=== PATIENT | female | born 1975 | race Caucasian/White ===

== ENCOUNTER 2021-10-01 13:08 | Emergency (ER) | payer OTHER, SELFPAY ==
--- NOTE | ~2021-10-01 | XR_ITS ---
EXAMINATION: XR HIP, LEFT CLINICAL INFORMATION: Status post fall. Left hip pain. COMPARISON: None TECHNIQUE: Two views of the left hip. FINDINGS: Bones and soft tissues are normal. No fracture. Alignment is anatomic. Hip joint space is maintained. XR/XR hip LT min 2V IMPRESSION: No evidence of acute fracture or dislocation in the left hip.
[2021-10-01 13:11] VITALS: BP 150/78; PULSE 95; RESP 22; TEMP 36.3; O2SAT 99; BMI 30.5
--- NOTE | 2021-10-01 16:08 | ED_ITS ---
HPI - Fall General Chief Complaint: Fall Stated Complaint: FALL L FOOT INJ Time Seen by Provider: 10/01/21 15:51 History of Present Illness HPI Narrative: patient complains of left gluteal pain after slipping on the stairs falling back and hitting her left gluteal area on the edge of the step, she has no other injury she had no numbness weakness or tingling and no changes to bowel or bladder Related Data Previous Rx's Medication Instructions Recorded acetaminophen 500 mg tablet 1,000 mg PO QID PRN #30 tab 10/01/21 ibuprofen 600 mg tablet 600 mg PO Q6H PRN #20 tab 10/01/21 oxycodone 5 mg tablet 5 mg PO Q6H PRN #14 tab 10/01/21 Allergies Allergy/AdvReac Type Severity Reaction Status Date / Time No Known Allergies Allergy Verified 10/01/21 13:13 Review of Systems Review of Systems: Positive for left gluteal pain after a fall Negatives are no headache no loss of consciousness no neck pain no numbness weakness or tingling no changes to bowel or bladder no joint pains or extremity pain Yes all other systems are reviewed and are negative [facility] Past Medical History Source: nursing notes reviewed Social History Social History Advance Directives: No Advance Directives Information Provided: No Patient : No Physical Exam Vital Signs: Vital Signs: Last Vital Signs Temp 97.3 F 10/01/21 13:11 Pulse 95 10/01/21 13:11 Resp 22 H 10/01/21 13:11 BP 150/78 H 10/01/21 13:11 Pulse Ox 99 10/01/21 13:11 BMI result Body Mass Index 30.5 General appearance is no acute distress Head normocephalic atraumatic Neck is supple nontender Respiratory no distress Abdomen soft nontender The back there is no bony tenderness in the back there is ecchymoses and a large palpable hematoma in the left gluteal area, but skin is intact The patient did have full range of motion in the hip and legs with normal motor strength distal 5/5 x4 in all extremities gait was a limping gait due to pain in her left gluteal area Extremities full range of motion x4 including left hip Neuro no focal motor sensory deficits Course Course Course Narrative: A left hip x-ray was normal and patient was diagnosed with a painful hematoma left gluteal and was given crutches and was able to ambulate comfortably with them and will follow with primary doctor if needed Discharge Plan Discharge Clinical Impression: Traumatic hematoma of buttock Qualifiers: Encounter type: initial encounter Qualified Code(s): S30.0XXA - Contusion of lower back and pelvis, initial encounter Patient Disposition: Home, Self-Care Additional Instructions: You have a large hematoma on the left buttock which is a collection of dried blood under the skin This usually improves in several days If not improving follow with your doctor or orthopedist who can refer you for physical therapy if needed and for further evaluation Return any time for severe uncontrolled pain, any change or worse condition Prescriptions: New ibuprofen 600 mg tablet 600 mg PO Q6H PRN (Reason: pain) Qty: 20 RF: 0 acetaminophen 500 mg tablet 1,000 mg PO QID PRN (Reason: pain) Qty: 30 RF: 0 oxycodone 5 mg tablet 5 mg PO Q6H PRN (Reason: pain) Qty: 14 RF: 0 Referrals: Esther Guillermo PA-C [Physician Chromosomal Disorders Counselor] - 2 days (Large gluteal hematoma) Interventions: ED Discharge Assessment Last Done: 10/01/21 16:28 Discharge Date/Time: 10/01/21 16:30
== END 2021-10-01 16:30 | disposition home or self-care (01) ==
PROVIDERS: Emergency Provider Emergency Medicine Emergency Medical Services
DX: S30.0XXA Contusion of lower back and pelvis, initial encounter (principal); W10.9XXA Fall (on) (from) unspecified stairs and steps, initial encounter; Y93.9 Activity, unspecified; Y92.9 Unspecified place or not applicable; Y99.9 Unspecified external cause status
CPT/HCPCS: 73502; 99283